=== PATIENT | female | born 1975 | race Caucasian/White ===

== ENCOUNTER 2017-04-14 19:19 | Emergency (ER) | payer MEDICAID ==
[~2017-04-14] VITALS: Ht 157.5 cm; Wt 53.0 kg
[2017-04-14] MEDS ORDERED: IBUPROFEN 600MG TABLET PO ONE (23:45)
[2017-04-15 00:23] VITALS: BP 125/86
== END 2017-04-15 01:28 | disposition home or self-care (01) ==
LOC: ER 04-15 00:10
DX: S39.011A Strain of muscle, fascia and tendon of abdomen, initial encounter (principal); W01.0XXA Fall on same level from slipping, tripping and stumbling without subsequent striking against object, initial encounter; Y93.89 Activity, other specified; Y92.89 Other specified places as the place of occurrence of the external cause
CPT/HCPCS: 71010; 81025; 99283

== ENCOUNTER 2017-05-07 20:16 | Emergency (ER) | payer MEDICAID ==
[~2017-05-07] VITALS: Ht 152.4 cm; Wt 54.5 kg
[2017-05-08] MEDS ORDERED: MORPHINE SULFATE 4 MG/ML CPJ (NOT FOR IM USE) IV STA (00:59)
[2017-05-08] MEDS ORDERED: SODIUM CHLORIDE 0.9% 1,000 ML IV ONE (00:59)
[2017-05-08] MEDS ORDERED: ONDANSETRON HCL 4MG/2ML VIAL IV STA (00:59)
[2017-05-08 01:17] LABS: BASOPHILS % 0.6 % (0.0-2.0); EOSINOPHILS % 2.7 % (0.0-5.0); HEMATOCRIT. 36.4 % (36.0-48.0); HEMOGLOBIN. 12.5 g/dL (12.0-16.0); LYMPHOCYTES % 34.3 % (20.0-50.0); MEAN CORPUSCULAR HEMOGLOBIN 30.1 pg (28.0-32.0); MEAN CORPUSCULAR VOLUME 87.5 fL (81.0-99.0); MEAN PLATELET VOLUME 7.6 fl (7.4-10.4); MONOCYTES % 8.2 % (2.0-8.0); NEUTROPHILS % 54.2 % (40.0-76.0); PLATELET 305 x1000/uL (130-400); RED BLOOD CELL COUNT 4.16 mill/uL (4.2-5.4); RED CELL DISTRIBUTION WIDTH 13.2 % (11.6-14.6)
[2017-05-08 01:22] LABS: CHLORIDE 107 mEq/L (98-107)
[2017-05-08 01:31] LABS: CARBON DIOXIDE 28 mEq/L (21-32)
[2017-05-08 03:13] LABS: CLARITY URINE CLOUDY (CLEAR); COLOR URINE YELLOW (YELLOW); GLUCOSE URINE NEGATIVE (NEGATIVE); KETONES URINE NEGATIVE (NEGATIVE); LEUKOCYTE ESTERASE URINE 3+ (NEGATIVE); NITRITE URINE NEGATIVE (NEGATIVE); OCCULT BLOOD URINE NEGATIVE (NEGATIVE); PH URINE 7.5 (4.5-8.0); PROTEIN URINE NEGATIVE (NEGATIVE); SPECIFIC GRAVITY URINE 1.013 (1.005-1.030); UROBILINOGEN URINE 0.2 E.U./dL (0.2-1.0)
[2017-05-08 05:30] VITALS: BP 128/77
== END 2017-05-08 05:30 | disposition home or self-care (01) ==
LOC: ER 20:16
DX: K80.20 Calculus of gallbladder without cholecystitis without obstruction (principal)
CPT/HCPCS: 36415; 76705; 80053; 81001; 81025; 83690; 85025; 96361; 96374; 96375; 99285; J2270; J2405; J7030; Z7610

== ENCOUNTER 2017-09-23 13:19 | Emergency (ER) | payer MEDICAID ==
[~2017-09-23] VITALS: Ht 165.1 cm; Wt 54.0 kg
[2017-09-23] MEDS ORDERED: KETOROLAC 30MG/ML VIAL IM ONE (17:15)
[2017-09-23] MEDS ORDERED: METOCLOPRAMIDE HCL 10MG TABLET PO ONE (17:30)
[2017-09-23] MEDS ORDERED: SODIUM CHLORIDE 0.9% 1,000 ML IV ONE (17:45)
[2017-09-23] MEDS ORDERED: KETOROLAC 30MG/ML VIAL IV ONE (17:45)
[2017-09-23] MEDS ORDERED: METOCLOPRAMIDE HCL 10MG/2ML VIAL IV ONE (18:00)
[2017-09-23 20:21] VITALS: BP 102/57
== END 2017-09-23 20:21 | disposition home or self-care (01) ==
LOC: ER 15:03
DX: R51 Headache (principal)
CPT/HCPCS: 96361; 96374; 96375; 99285; J1885; J2765; J7030; Z7610

== ENCOUNTER 2018-11-01 16:44 | Emergency (ER) | payer MEDICAID ==
[~2018-11-01] VITALS: Ht 165.1 cm; Wt 59.0 kg
[2018-11-01 16:46] VITALS: BP 123/68
== END 2018-11-01 22:43 | disposition left against medical advice (07) ==
LOC: ER 18:58
DX: R06.02 Shortness of breath (principal); Z53.21 Procedure and treatment not carried out due to patient leaving prior to being seen by health care provider
CPT/HCPCS: 93005

== ENCOUNTER 2018-11-02 09:15 | Emergency (ER) | payer MEDICAID ==
[~2018-11-02] VITALS: Ht 160 cm; Wt 59.0 kg
[2018-11-02] MEDS ORDERED: ASPIRIN 325MG EC TABLET PO ONE (12:00)
[2018-11-02 12:36] LABS: BASOPHILS % 0.5 % (0.0-2.0); EOSINOPHILS % 1.7 % (0.0-5.0); HEMATOCRIT. 39.3 % (36.0-48.0); HEMOGLOBIN. 13.1 g/dL (12.0-16.0); LYMPHOCYTES % 33.2 % (20.0-50.0); MEAN CORPUSCULAR HEMOGLOBIN 29.7 pg (28.0-32.0); MEAN CORPUSCULAR VOLUME 89.4 fL (81.0-99.0); MEAN PLATELET VOLUME 7.6 fl (7.4-10.4); MONOCYTES % 7.3 % (2.0-8.0); NEUTROPHILS % 57.3 % (40.0-76.0); PLATELET 318 x1000/uL (130-400); RED BLOOD CELL COUNT 4.39 mill/uL (4.2-5.4); RED CELL DISTRIBUTION WIDTH 13.5 % (11.6-14.6)
[2018-11-02 12:42] LABS: CHLORIDE 109 mEq/L (98-107)
[2018-11-02 14:45] VITALS: BP 118/64
== END 2018-11-02 15:15 | disposition home or self-care (01) ==
LOC: ER 09:32
DX: R07.89 Other chest pain (principal)
CPT/HCPCS: 36415; 71046; 83880; 84484; 93005; 99284

== ENCOUNTER 2021-03-19 20:48 | Emergency (ER) | payer MEDICAID ==
[~2021-03-19] VITALS: Ht 152.4 cm; Wt 66.0 kg
[2021-03-19] MEDS ORDERED: ACETAMINOPHEN 325MG TABLET PO ONE (21:15)
[2021-03-19] MEDS ORDERED: LEVOFLOXACIN 250MG TABLET PO STA (22:20)
[2021-03-19 23:07] LABS: CHLORIDE 105 mEq/L (98-107)
[2021-03-20] MEDS ORDERED: CIPR500T5 MT (00:54)
[2021-03-20 01:15] VITALS: BP 119/76
[2021-03-20] MEDS ORDERED: IOHEXOL-350 100 ML BOTTLE ONE (01:40)
== END 2021-03-20 01:39 | disposition home or self-care (01) ==
LOC: ER 21:13
DX: H66.91 Otitis media, unspecified, right ear (principal); H93.11 Tinnitus, right ear; R51.9 Headache, unspecified; Z79.899 Other long term (current) drug therapy
CPT/HCPCS: 36415; 70496; 80048; 99285; Q9967

== ENCOUNTER 2021-08-05 18:25 | Emergency (ER) | payer MEDICAID ==
[~2021-08-05] VITALS: Ht 157.5 cm; Wt 64.0 kg
[~2021-08-05 18:25] MED LIST: CIPR500T5 MT
[2021-08-05 18:42] VITALS: BP 130/79
[2021-08-05] MEDS ORDERED: KETOROLAC 60MG/2ML VIAL IM ONE (21:30)
[2021-08-05] MEDS ORDERED: CEFTRIAXONE SODIUM 1 G/VIAL IM ONE (21:30)
[2021-08-05] MEDS ORDERED: LIDOCAINE HCL 1% 20ML VIAL (Pyxis) INJ INFIL ONE (21:30)
[2021-08-05] MEDS ORDERED: LIDOCAINE HCL 1% 10 MG/ML 10ML VIAL INJ NR (22:00)
[2021-08-05] MEDS ORDERED: AMOX-424 MT (23:11)
[2021-08-05] MEDS ORDERED: TRAM50TA3 MT (23:11)
[2021-08-05] MEDS ORDERED: CIPHCO RIGHT EAR (23:11)
[2021-08-05] MEDS ORDERED: IBUP-2028 MT (23:11)
== END 2021-08-05 23:41 | disposition home or self-care (01) ==
LOC: ER 18:25
DX: H60.591 Other noninfective acute otitis externa, right ear (principal); F10.129 Alcohol abuse with intoxication, unspecified; Y90.0 Blood alcohol level of less than 20 mg/100 ml; Z79.899 Other long term (current) drug therapy
CPT/HCPCS: 81025; 96372; 99284; J0696; J1885; J3490

== ENCOUNTER 2021-11-25 12:03 | Emergency (ER) | payer MEDICAID ==
[~2021-11-25] VITALS: Ht 157.5 cm; Wt 64.0 kg
[~2021-11-25 12:03] MED LIST changes: +AMOX-424 MT; +CIPHCO RIGHT EAR; +IBUP-2028 MT; +TRAM50TA3 MT
[2021-11-25] MEDS ORDERED: KETOROLAC 30MG/ML VIAL IV STA (12:11)
[2021-11-25] MEDS ORDERED: SODIUM CHLORIDE 0.9% 1,000 ML IV ONE (12:15)
[2021-11-25 13:08] LABS: CLARITY URINE CLOUDY (CLEAR); COLOR URINE YELLOW (YELLOW); KETONES URINE NEGATIVE (NEGATIVE); LEUKOCYTE ESTERASE URINE 1+ (NEGATIVE); NITRITE URINE NEGATIVE (NEGATIVE); OCCULT BLOOD URINE NEGATIVE (NEGATIVE); PROTEIN URINE NEGATIVE (NEGATIVE); SPECIFIC GRAVITY URINE 1.019 (1.005-1.030); UROBILINOGEN URINE 0.2 E.U./dL (0.2-1.0)
[2021-11-25] MEDS ORDERED: KETOROLAC 30MG/ML VIAL IV NR (17:00)
[2021-11-25 17:09] LABS: CHLORIDE 107 mEq/L (98-107)
[2021-11-25 17:10] LABS: HEMATOCRIT. 39.6 % (36.0-48.0); HEMOGLOBIN. 13.8 g/dL (12.0-16.0); MEAN CORPUSCULAR HEMOGLOBIN 29.9 pg (28.0-32.0); MEAN CORPUSCULAR VOLUME 85.7 fL (81.0-99.0); RED BLOOD CELL COUNT 4.62 mill/uL (4.2-5.4); RED CELL DISTRIBUTION WIDTH 13.3 % (11.6-14.6)
[2021-11-25 18:41] LABS: PLATELET 279 x1000/uL (130-400)
[2021-11-25 18:42] LABS: MEAN PLATELET VOLUME 8.1 fl (7.4-10.4)
[2021-11-25 18:43] LABS: PLATELET ESTIMATE NORMAL
[2021-11-25] MEDS ORDERED: MORPHINE SULFATE 4 MG/ML CPJ (NOT FOR IM USE) IV ONE (19:00)
[2021-11-25] MEDS ORDERED: CEFTRIAXONE 1 G PREMIX 50 ML IV NR (19:00)
[2021-11-25 20:21] VITALS: BP 109/74
[2021-11-25] MEDS ORDERED: CEPH500T MT (20:26)
== END 2021-11-25 20:57 | disposition home or self-care (01) ==
LOC: ER 12:03
DX: N39.0 Urinary tract infection, site not specified (principal); M25.511 Pain in right shoulder; D72.829 Elevated white blood cell count, unspecified; Z79.899 Other long term (current) drug therapy
CPT/HCPCS: 36415; 73030; 80053; 81003; 81025; 83690; 85025; 93005; 96361; 96365; 96375; 99285; J0696; J1885; J2270; J7030

== ENCOUNTER 2022-04-15 11:29 | Emergency (ER) | payer MEDICAID ==
[~2022-04-15] VITALS: Ht 162.6 cm; Wt 65.0 kg
[~2022-04-15 11:29] MED LIST changes: +CEPH500T MT
[2022-04-15 13:19] VITALS: BP 122/77
[2022-04-15] MEDS ORDERED: IBUPROFEN 600MG TABLET PO STA (13:19)
[2022-04-15] MEDS ORDERED: HYDROCODONE/ACETAMINOPHEN 5/325MG TABLET PO STA (13:19)
[2022-04-15 14:46] LABS: CLARITY URINE CLOUDY (CLEAR); COLOR URINE YELLOW (YELLOW); KETONES URINE NEGATIVE (NEGATIVE); LEUKOCYTE ESTERASE URINE 2+ (NEGATIVE); NITRITE URINE NEGATIVE (NEGATIVE); OCCULT BLOOD URINE NEGATIVE (NEGATIVE); PH URINE 6.5 (4.5-8.0); PROTEIN URINE TRACE (NEGATIVE); UROBILINOGEN URINE 0.2 E.U./dL (0.2-1.0)
[2022-04-15 15:53] LABS: BASOPHILS % 0.6 % (0.0-2.0); EOSINOPHILS % 1.8 % (0.0-5.0); HEMATOCRIT. 41.2 % (36.0-48.0); HEMOGLOBIN. 13.7 g/dL (12.0-16.0); LYMPHOCYTES % 32.2 % (20.0-50.0); MEAN CORPUSCULAR HEMOGLOBIN 28.9 pg (28.0-32.0); MEAN CORPUSCULAR VOLUME 87.2 fL (81.0-99.0); MEAN PLATELET VOLUME 7.7 fl (7.4-10.4); MONOCYTES % 4.6 % (2.0-8.0); NEUTROPHILS % 60.8 % (40.0-76.0); PLATELET 317 x1000/uL (130-400); RED BLOOD CELL COUNT 4.73 mill/uL (4.2-5.4); RED CELL DISTRIBUTION WIDTH 13.6 % (11.6-14.6)
[2022-04-15 15:58] LABS: CHLORIDE 105 mEq/L (98-107)
[2022-04-15 16:08] LABS: HCG SCREEN NEGATIVE
[2022-04-15] MEDS ORDERED: NITR-87 MT (16:15)
[2022-04-15] MEDS ORDERED: IBUP-2028 MT (16:15)
[2022-04-15] MEDS ORDERED: HYDR-4001 MT (16:15)
== END 2022-04-15 16:21 | disposition home or self-care (01) ==
LOC: ER 11:29
DX: K80.20 Calculus of gallbladder without cholecystitis without obstruction (principal); N39.0 Urinary tract infection, site not specified
CPT/HCPCS: 36415; 76700; 80053; 81003; 81025; 84703; 85025; 99284

== ENCOUNTER 2023-01-16 18:56 | Emergency (ER) | payer MEDICAID ==
[~2023-01-16] VITALS: Ht 162.6 cm; Wt 75.0 kg
[~2023-01-16 18:56] MED LIST changes: +HYDR-4001 MT; +NITR-87 MT
[2023-01-16 19:24] LABS: BASOPHILS % 0.7 % (0.0-2.0); EOSINOPHILS % 3.1 % (0.0-5.0); HEMATOCRIT. 38.3 % (36.0-48.0); HEMOGLOBIN. 13.1 g/dL (12.0-16.0); LYMPHOCYTES % 32.7 % (20.0-50.0); MEAN CORPUSCULAR VOLUME 87.5 fL (81.0-99.0); MEAN PLATELET VOLUME 7.3 fl (7.4-10.4); MONOCYTES % 6.2 % (2.0-8.0); NEUTROPHILS % 57.3 % (40.0-76.0); PLATELET 369 x1000/uL (130-400); RED BLOOD CELL COUNT 4.37 mill/uL (4.2-5.4); RED CELL DISTRIBUTION WIDTH 13.9 % (11.6-14.6)
[2023-01-16 19:34] LABS: CHLORIDE 107 mEq/L (98-107)
[2023-01-17] MEDS ORDERED: KETOROLAC 30MG/ML VIAL IM ONE (00:15)
[2023-01-17] MEDS ORDERED: ONDANSETRON 4MG ODT PO ONE (00:15)
[2023-01-17] MEDS ORDERED: IBUP-2028 MT (00:23)
[2023-01-17 01:07] VITALS: BP 96/75
== END 2023-01-17 01:00 | disposition home or self-care (01) ==
LOC: ER 18:56
DX: K80.50 Calculus of bile duct without cholangitis or cholecystitis without obstruction (principal); Z79.899 Other long term (current) drug therapy
CPT/HCPCS: 36415; 76705; 80053; 81025; 83690; 84484; 85025; 96372; 99285; J1885; Q0162; Z7610